=== PATIENT | female | born 1980 | race Two or more races ===

== ENCOUNTER 2017-09-25 09:14 | Emergency (ER) | payer OTHER ==
[2017-09-25 09:27] VITALS: BMI 31.8
[2017-09-25] MEDS ORDERED: KETOROLAC TROMETHAMINE 15 MG/ML VIAL IVPUSH ONE (10:19)
--- NOTE | 2017-09-25 10:28 | PDOC ---
History of Present Illness <Bettye Ledesma - Last Filed: 09/25/17 14:06> <José Manuel Petersen - Last Filed: 09/25/17 22:28> - General Chief Complaint: Chest Pain Stated Complaint: CHEST PAIN Time Seen by Provider: 09/25/17 10:02 - History of Present Illness Initial Comments: 09/25/17 10:26 "36 year old female, with significant past medical history of HTN and HLD, who presents to the emergency room complaining of 3 days of sharp right sided rib pain that is exacerbated with movement and taking a deep breath. She states that the pain is localized to the right side of her ribs under her breast and it is making it difficult for her to take a deep breath. She denies any recent injury, trauma, or heavy lifting. Denies cough. Denies recent travel. Denies leg swelling. Denies fever, chills, nausea, vomiting. Is not on OCP or exogenous estrogen, no h/o DVT/PE. Pt is daily smoker. Allergies: NKDA Social Hx: Current every day tobacco use. PCP: Dr. Lanza " (José Manuel Petersen) Past History <Bettye Ledesma - Last Filed: 09/25/17 14:06> - Past Medical History COPD: No HTN: Yes Hypercholesterolemia: Yes - Suicide/Smoking/Psychosocial Hx Smoking History: Current every day smoker Number of Cigarettes Smoked Daily: 10 Information on smoking cessation initiated: Yes 'Breaking Loose' booklet given: 09/25/17 <José Manuel Petersen - Last Filed: 09/25/17 22:28> - Past Medical History Allergies/Adverse Reactions: Allergies Allergy/AdvReac Type Severity Reaction Status Date / Time No Known Allergies Allergy Verified 09/25/17 09:27 Home Medications: Ambulatory Orders Enalapril Maleate [Vasotec -] 5 mg PO DAILY 09/25/17 Fenofibrate,Micronized [Fenofibrate] 67 mg PO DAILY 09/25/17 Review of Systems <Bettye Ledesma - Last Filed: 09/25/17 14:06> <José Manuel Petersen - Last Filed: 09/25/17 22:28> - Review of Systems Comments:: 09/25/17 10:27 "GENERAL/CONSTITUTIONAL: No fever or chills. No weakness. HEAD, EYES, EARS, NOSE AND THROAT: No change in vision. No ear pain or discharge. No sore throat. CARDIOVASCULAR: +right sided rib pain. No shortness of breath. RESPIRATORY: No cough, wheezing, or hemoptysis. GASTROINTESTINAL: No nausea, vomiting, diarrhea or constipation. GENITOURINARY: No dysuria, frequency, or change in urination. MUSCULOSKELETAL: No joint or muscle swelling or pain. No neck or back pain. SKIN: No rash NEUROLOGIC: No headache, vertigo, loss of consciousness, or change in strength/ sensation. ENDOCRINE: No increased thirst. No abnormal weight change. HEMATOLOGIC/LYMPHATIC: No anemia, easy bleeding, or history of blood clots. ALLERGIC/IMMUNOLOGIC: No hives or skin allergy. " (José Manuel Petersen) *Physical Exam <Bettye Ledesma - Last Filed: 09/25/17 14:06> <José Manuel Petersen - Last Filed: 09/25/17 22:28> - Vital Signs Last Vital Signs Temp Pulse Resp BP Pulse Ox 98.2 F 89 19 112/70 98 09/25/17 14:39 09/25/17 14:39 09/25/17 14:39 09/25/17 14:39 09/25/17 10:47 - Physical Exam Comments: 09/25/17 10:27 " GENERAL: Awake, alert, and fully oriented, in no acute distress HEAD: No signs of trauma EYES: PERRLA, EOMI, sclera anicteric, conjunctiva clear ENT: Auricles normal inspection, hearing grossly normal, nares patent, oropharynx clear without exudates. Moist mucosa NECK: Nontender, no stepoffs, Normal ROM, supple, no lymphadenopathy, JVD, or masses LUNGS: +right sided chest wall tenderness. Breath sounds equal, clear to auscultation bilaterally. No wheezes, and no crackles HEART: Regular rate and rhythm, normal S1 and S2, no murmurs, rubs or gallops ABDOMEN: Soft, nontender, normoactive bowel sounds. No guarding, no rebound. No masses EXTREMITIES: Normal range of motion, no edema. No clubbing or cyanosis. No cords , erythema, or tenderness NEUROLOGICAL: Cranial nerves II through XII intact. 5/5 strength and sensation in all extremities, Normal speech, normal gait SKIN: Warm, Dry, normal turgor, no rashes or lesions noted. " (José Manuel Petersen) Heart Score/ECG Review <Bettye Ledesma - Last Filed: 09/25/17 14:06> - History History: Slightly suspicious - Electrocardiogram EKG: Normal - Age Age: </= 44 - Risk Factors Risk Factors Heart Score: Yes Hx Hypercholesterolemia, Yes Hx Hypertension Based on the list above the patient has:: 1-2 risk factors - Troponin Troponin: </= normal limit - Score Heart Score - Total: 1 <José Manuel Petersen - Last Filed: 09/25/17 22:28> - ECG Impressions Comment:: 09/25/17 10:27 NSR, no DARIAN/STDs, no TWis, intervals wnl, axis wnl (José Manuel Petersen) ED Treatment Course - LABORATORY CBC & Chemistry Diagram: 09/25/17 10:40 09/25/17 10:40 <Bettye Ledesma - Last Filed: 09/25/17 14:06> - LABORATORY CBC & Chemistry Diagram: 09/25/17 10:40 09/25/17 10:40 <José Manuel Petersen - Last Filed: 09/25/17 22:28> - ADDITIONAL ORDERS Additional order review: Laboratory Results 09/25/17 09/25/17 09/25/17 10:50 10:48 10:48 PT with INR INR PTT (Actin FS) D-Dimer 281 H Sodium Potassium Chloride Carbon Dioxide Anion Gap BUN Creatinine Creat Clearance w eGFR Random Glucose Calcium Total Bilirubin AST ALT Alkaline Phosphatase Creatine Kinase 78 Troponin I < 0.02 Total Protein Albumin Urine HCG, Qual Negative 09/25/17 09/25/17 10:40 10:40 PT with INR 12.60 H INR 1.12 PTT (Actin FS) 30.7 D-Dimer Sodium 134 L Potassium 4.4 Chloride 101 Carbon Dioxide 27 Anion Gap 6 L BUN 13 Creatinine 0.7 Creat Clearance w eGFR > 60 Random Glucose 91 Calcium 9.1 Total Bilirubin 0.5 AST 20 ALT 30 Alkaline Phosphatase 42 L Creatine Kinase Troponin I Total Protein 8.3 H Albumin 4.2 Urine HCG, Qual 09/25/17 10:40 RBC 4.24 MCV 91.0 MCHC 35.0 RDW 12.6 MPV 9.5 Neutrophils % 66.9 Lymphocytes % 22.3 Monocytes % 6.3 Eosinophils % 3.4 Basophils % 1.1 - RADIOLOGY Radiology Studies Ordered: Category Date Time Status CHEST CTA [CT] Stat CT Scan 09/25/17 11:52 Completed CHEST PA & LAT [RAD] Stat Radiology 09/25/17 10:15 Completed ABDOMEN US [US] Stat Ultrasound 09/25/17 14:37 Completed Radiograph Interpretation: 09/25/17 14:07 EXAM#: TYPE/EXAM: RESULT: [id number] CT/CHEST CTA HISTORY PROVIDED: Rule out PE. TECHNIQUE: Sequential axial images were obtained from the thoracic inlet through the domes of the diaphragm following the administration of intravenous contrast material. CTA pulmonary embolism protocol was utilized, including coronal and oblique coronal MIP images. There is good opacification of the central pulmonary vasculature with no filling defects suspicious for pulmonary embolism. The lung rayo are free of pulmonary masses or areas of acute consolidation. There is a small right pleural effusion with atelectatic changes involving the right lower lobe. Left basilar atelectasis is noted as well without a pleural effusion. No mediastinal masses, fluid collections or significant lymphadenopathy are identified. The heart is not enlarged. There is no evidence of acute pathology within the upper abdomen. IMPRESSION: 1. No evidence of pulmonary embolism. 2. Right pleural effusion with lower lobe atelectasis. 3. Less extensive atelectatic changes at the left lung base. Clinical correlation and follow-up recommended. Please see above discussion. Reported By: Ivan Armstrong MD 09/25/17 1491 (Bettye Ledesma) - Medications Given in the ED: ED Medications Discontinued Medications Generic Name Dose Route Start Last Admin Trade Name Freq PRN Reason Stop Dose Admin Ketorolac Tromethamine 15 mg 09/25/17 10:19 09/25/17 10:58 Toradol Injection - IVPUSH 09/25/17 10:20 15 mg ONCE ONE Administration Medical Decision Making <Bettye Ledesma - Last Filed: 09/25/17 14:06> <José Manuel Petersen - Last Filed: 09/25/17 22:28> - Medical Decision Making 09/25/17 10:27 36 F with reproducible R sided rib pain. Likely msk in etiology. Pt with normal EKG, making ACS unlikely. Pt has PERC score 0, making PE unlikely. - Labs, trop, ddimer - CXR - Pain control 09/25/17 16:00 Dimer positive. CTA negative for acute PE but notable for R pleural effusion. Pt with no signs of malignancy or infectious process on CT. RUQ sono obtained, negative for acute manisha. Pt reassessed - reports improvement in pain with toradol. Exam with no abdominal tenderness. Minimal R chest wall tenderness. Pt is well appearing, with normal vitals. Will DC home with PMD f/u. I discussed the physical exam findings, ancillary test results and final diagnoses with the patient. I answered all of the patient's questions. The patient was satisfied with the care received and felt comfortable with the discharge plan and treatment plan. The patient agrees to follow up with the primary care physician within 24-72 hours. (José Manuel Petersen) *DC/Admit/Observation/Transfer <[email or web address] - Last Filed: 09/25/17 14:06> <José Manuel Petersen - Last Filed: 09/25/17 22:28> Diagnosis at time of Disposition: Pleural effusion - Discharge Dispostion Disposition: HOME - Referrals Referrals: Jose Lanza [Primary Care Provider] - - Patient Instructions Printed Discharge Instructions: DI for Atypical Chest Pain Additional Instructions: Follow up with your primary doctor within 1 week. You have fluid in your right lung, which may be related to your pain. It is unclear why you have fluid in your lung, but there is a small chance this may represent cancer or infection. Thus, it is important for you to follow up as soon as possible. If you experience worsening pain, shortness of breath, fevers, or any other concerning symptoms, return to the ER immediately. - Attestations Physician Attestion: 09/25/17 16:02 I, Dr. José Manuel Petersen MD, attest that this document has been prepared under my direction and personally reviewed by me in its entirety. I further attest, that it accurately reflects all work, treatment, procedures and medical decision -making performed by me. (José Manuel Petersen)
[2017-09-25] MEDS ORDERED: KETOROLAC TROMETHAMINE 15 MG/ML VIAL ONE (10:46)
[2017-09-25 10:58] LABS: BASOPHIL 1.1 % (0-2.0); EOSINOPHIL 3.4 % (0-4.5); MCH 31.9 pg (25.7-33.7); MEAN PLT VOLUME 9.5 fl (7.5-11.1); NEUTROPHILS 66.9 % (42.8-82.8); PLATELET COUNT 279 K/MM3 (134-434); RDW 12.6 % (11.6-15.6); WHITE BLOOD COUNT 7.8 K/mm3 (4.0-10.0)
[2017-09-25 11:21] LABS: ALBUMIN 4.2 g/dl (3.4-5.0); ANION GAP 6 (8-16); CALCIUM 9.1 mg/dL (8.5-10.1); CO2 27 mmol/L (21-32); GLUCOSE,RANDOM 91 mg/dL (74-106)
[2017-09-25 11:23] LABS: INR 1.12 (0.82-1.09); PROTHROMBIN TIME (PATIENT) 12.6 SEC (9.98-11.88)
[2017-09-25 11:26] LABS: ACTIVATED PTT 30.7 SECONDS (26.9-34.4); ALK PHOS 42 U/L (45-117); BILIRUBIN,TOTAL 0.5 mg/dL (0.2-1.0); CREATININE 0.7 mg/dL (0.55-1.02); SGOT/AST 20 U/L (15-37); SGPT/ALT 30 U/L (12-78); TOT PROT 8.3 g/dl (6.4-8.2)
[2017-09-25 11:26] LABS: CPK 78 IU/L (26-192); TROPONIN I < 0.02 ng/ml (0.00-0.05)
[2017-09-25 14:40] VITALS: BP 112/70; PULSE 89; TEMP 98.2
--- NOTE | 2017-09-26 17:06 | EKG ---
Test Reason : Blood Pressure : / mmHG Vent. Rate : 082 BPM Atrial Rate : 082 BPM P-R Int : 180 ms QRS Dur : 080 ms QT Int : 380 ms P-R-T Axes : 013 033 030 degrees QTc Int : 443 ms NORMAL SINUS RHYTHM NORMAL ECG NO PREVIOUS ECGS AVAILABLE Confirmed by CECE JESSICA MD ([id number]) on 09/26/2017 5:06:39 PM Referred By: Confirmed By:CECE JESSICA MD
== END 2017-09-25 16:59 | disposition home or self-care (01) ==
LOC: JER 09:14
PROC: 3E0333Z Introduction of Anti-inflammatory into Peripheral Vein, Percutaneous Approach (ICD-10-PCS; principal; 2017-09-25)
DX: J90 Pleural effusion, not elsewhere classified (principal); I10 Essential (primary) hypertension; E78.5 Hyperlipidemia, unspecified; F17.210 Nicotine dependence, cigarettes, uncomplicated
CPT/HCPCS: 36415; 71020-TC; 71275-TC; 76700-TC; 80053; 82550; 84484; 84703; 85025; 85379; 85610; 85730; 93005; 93010; 99285-25

== ENCOUNTER 2020-11-21 17:05 | Emergency (ER) | payer OTHER ==
[2020-11-21 17:23] VITALS: TEMP 98.1; BMI 28.9
[2020-11-21] MEDS ORDERED: KETOROLAC TROMETHAMINE 60 MG/2 ML VIAL IM ONE (19:30)
[2020-11-21] MEDS ORDERED: KETOROLAC TROMETHAMINE 60 MG/2 ML VIAL ONE (19:41)
[2020-11-21 20:44] VITALS: BP 130/88; PULSE 78
== END 2020-11-21 20:46 | disposition home or self-care (01) ==
LOC: JER 17:05
PROC: 3E0233Z Introduction of Anti-inflammatory into Muscle, Percutaneous Approach (ICD-10-PCS; principal; 2020-11-21)
DX: M79.609 Pain in unspecified limb (principal)
CPT/HCPCS: 71046-TC-FY; 93005; 93010; 99284-25